=== PATIENT | male | born 1980 | race Caucasian/White ===

== ENCOUNTER 2016-11-24 18:37 | Emergency (ER) | payer MEDICAID, OTHER ==
[2016-11-24 18:44] VITALS: BP 122/78
--- NOTE | 2016-11-24 20:43 | ED ---
prachi Ivye Timothy, scribed for Krish Emerson MD on 11/24/16 at 1855 . Psychiatric Complaint - HPI Summary HPI Summary: Michael Mena is a 36 yo male presenting to [facility] with homicidal intent. He states he had a plan to kill his step father with an ax. Pt's girlfriend is present in room. Pt is on 50 mg zoloft. He states he has been drinking today. His MHx includes alcoholism, DT's, withdrawl seizures, tobacco use. - History Of Current Complaint Chief Complaint: EDMentalHealth Time Seen by Provider: 11/24/16 18:46 Accompanied By: significant other Hx Obtained From: Patient Onset/Duration: Gradual Onset, Lasting Hours, Still Present Timing: Constant Severity Initially: Moderate Severity Currently: Moderate Character: Manic Associated Signs And Symptoms: Positive: Hostile Related History: Positive For: Prior Psychiatric Issues Has Homicidal: Reports: Thoughts, With A Plan - Allergies/Home Medications Allergies/Adverse Reactions: Allergies Allergy/AdvReac Type Severity Reaction Status Date / Time No Known Allergies Allergy Verified 01/11/13 15:48 PMH/Surg Hx/FS Hx/Imm Hx Neurological History: Reports: Other Neuro Impairments/Disorders - withdrawal seizures, DTS Psychiatric History: Reports: Hx Substance Abuse - alcoholism - Immunization History Date of Tetanus Vaccine: UNKNOWN Date of Influenza Vaccine: NONE Infectious Disease History: No Infectious Disease History: Denies: Traveled Outside the US in Last 30 Days - Social History Alcohol Use: Daily Alcohol Amount: 12-48 beers a day/ pt usually drinks hard liquor. Substance Use Type: Reports: None Substance Use Comment - Amount & Last Used: occasional Hx Tobacco Use: Yes Smoking Status (MU): Heavy Every Day Tobacco Smoker Review of Systems Constitutional: Negative Eyes: Negative ENT: Negative Cardiovascular: Negative Respiratory: Negative Gastrointestinal: Negative Genitourinary: Negative Musculoskeletal: Negative Skin: Negative Neurological: Negative Psychological: Other - HI All Other Systems Reviewed And Are Negative: Yes Physical Exam Triage Information Reviewed: Yes Vital Signs On Initial Exam: Initial Vitals Temp Pulse Resp BP Pulse Ox 98.4 F 94 20 122/78 99 11/24/16 18:39 11/24/16 18:39 11/24/16 18:39 11/24/16 18:39 11/24/16 18:39 Vital Signs Reviewed: Yes Appearance: Positive: Well-Appearing, No Pain Distress Skin: Positive: Warm, Skin Color Reflects Adequate Perfusion, Dry Head/Face: Positive: Normal Head/Face Inspection Eyes: Positive: Normal ENT: Positive: Normal ENT inspection Neck: Positive: Supple, Nontender Respiratory/Lung Sounds: Positive: Clear to Auscultation, Breath Sounds Present Cardiovascular: Positive: RRR Abdomen Description: Positive: Nontender, Soft Bowel Sounds: Positive: Present Musculoskeletal: Positive: Normal Neurological: Positive: Normal Psychiatric: Negative: Normal - expressed HI Diagnostics - Vital Signs Vital Signs Temp Pulse Resp BP Pulse Ox 11/24/16 18:39 98.4 F 94 20 122/78 99 - Laboratory Lab Statement: Any lab studies that have been ordered have been reviewed, and results considered in the medical decision making process. Course/Dx - Course Assessment/Plan: Michael Mena is a 36 yo male presenting to [facility] with HI and a plan. Pt left [facility] at approximately 1900, police were promptly notified of situation adn will return Pt to the ED. 945 paperwork was filled out. - Differential Dx/Clinical Impression Provider Diagnosis: LWBS Discharge - Discharge Plan Condition: Fair Disposition: LEFT WITHOUT BEING SEEN Discharge Disposition Comment: Pt eloped at approximately 1900 Referrals: No Primary Care Phys,NOPCP [Primary Care Provider] - The documentation as recorded by the prachi kingsley Timothy accurately reflects the service I personally performed and the decisions made by me, Krish Emerson MD.
[2016-11-24 22:04] LABS: Hematocrit 53 % (42-52); Hemoglobin 17.1 g/dl (14.0-18.0); Mean Corpuscular HGB Conc 33 g/dl (31-36); Mean Corpuscular Hemoglobin 29 pg (27-31); Mean Corpuscular Volume 90 fL (80-94); Mean Platelet Volume 9 um3 (7.4-10.4); Red Blood Count 5.84 10^6/ul (4.0-5.4); Red Cell Distribution Width 14 % (10.5-15); White Blood Count 14.5 10^3/ul (3.5-10.8)
[2016-11-24 22:06] LABS: Urine Bilirubin Negative (Negative); Urine Glucose Negative (Negative); Urine Nitrite Negative (Negative)
[2016-11-24 22:19] LABS: ALT 33 U/L (7-52); AST 20 U/L (13-39); Albumin 4.8 g/dL (3.2-5.2); Alkaline Phosphatase 76 U/L (34-104); Anion Gap 10 mmol/L (2-11); BUN/Creatinine Ratio 7.6 (8-20); Blood Urea Nitrogen 6 mg/dL (6-24); CO2 Carbon Dioxide 19 mmol/L (22-32); Calcium 9.6 mg/dL (8.6-10.3); Chloride 106 mmol/L (101-111); EGFR African American 141.2 (>60); EGFR Non-African American 109.8 (>60); Globulin 4.2 g/dL (2-4); Glucose 97 mg/dL (70-100); Potassium 4.2 mmol/L (3.5-5.0); Sodium 135 mmol/L (133-145)
[2016-11-24 22:36] LABS: Acetaminophen < 15 mcg/mL; Alcohol 248 mg/dL (<10); Salicylate < 2.50 mg/dL (<30)
[2016-11-24 22:47] LABS: TSH (Thyroid Stimulating Horm) 1.09 mcIU/mL (0.34-5.60)
== END 2016-11-24 20:43 | disposition left against medical advice (07) ==
LOC: ED 18:37
DX: Z00.8 Encounter for other general examination (principal); Z53.21 Procedure and treatment not carried out due to patient leaving prior to being seen by health care provider
CPT/HCPCS: 36415; 80053; 80320; 80329; 81003; 84443; 85025; G0480

== ENCOUNTER 2016-11-24 21:17 | Inpatient (IN) | payer MEDICAID, OTHER ==
[2016-11-24] MEDS ORDERED: LORazepam INJ* 2 MG/ML 1 ML VIAL IM ONE (21:30)
[2016-11-24] MEDS ORDERED: LORazepam INJ* 2 MG/ML 1 ML VIAL ONE (21:31)
[2016-11-24] MEDS ORDERED: Nicotine Inhaler* 10 MG AMP ONE (21:52)
[2016-11-24] MEDS ORDERED: Mouth Piece, Nicotine* 1 EACH CARTRIDGE ONE (21:53)
--- NOTE | 2016-11-24 22:10 | ED ---
Es Ivey Erika, scribed for Jag Pate MD on 11/24/16 at 2146 . Psychiatric Complaint - HPI Summary HPI Summary: Patient is a 36-year-old male BIB police with a CC of prior HI. Patient was first seen in the ED at 18:46 today, where he reported HI with a plan of killing his stepfather with an axe. Patient eloped from the ED and police were immediately notified. Patient has now been returned to the ED by law enforcement after they found him at his home address. Currently, patient denies any SI and HI. - History Of Current Complaint Chief Complaint: EDMentalHealth Time Seen by Provider: 11/24/16 21:29 Hx Obtained From: Patient, Medical Records Onset/Duration: Gradual Onset, Lasting Hours, Still Present Timing: Constant Severity Currently: Severe Aggravating Factor(s): Alcohol Use Alleviating Factor(s): Nothing Associated Signs And Symptoms: Positive: Hostile Related History: Positive For: Prior Psychiatric Issues - Allergies/Home Medications Allergies/Adverse Reactions: Allergies Allergy/AdvReac Type Severity Reaction Status Date / Time No Known Allergies Allergy Verified 11/24/16 21:24 PMH/Surg Hx/FS Hx/Imm Hx Neurological History: Reports: Other Neuro Impairments/Disorders - withdrawal seizures, DTS Psychiatric History: Reports: Hx Substance Abuse - alcohol abuse - Immunization History Date of Tetanus Vaccine: UNKNOWN Date of Influenza Vaccine: NONE Infectious Disease History: No Infectious Disease History: Denies: Traveled Outside the US in Last 30 Days - Family History Known Family History: Positive: Hypertension - Social History Lives: With Family Alcohol Use: Daily Alcohol Amount: 12-48 beers a day/ pt usually drinks hard liquor. Substance Use Type: Reports: None Substance Use Comment - Amount & Last Used: occasional Hx Tobacco Use: Yes Smoking Status (MU): Heavy Every Day Tobacco Smoker Review of Systems Negative: Fever ENT: Other - gum pain Psychological: Other - Noted HI earlier today, currently denies All Other Systems Reviewed And Are Negative: Yes Physical Exam Triage Information Reviewed: Yes Vital Signs On Initial Exam: Initial Vitals Temp Pulse Resp BP Pulse Ox 98.3 F 110 16 132/93 96 11/24/16 21:21 11/24/16 21:21 11/24/16 21:21 11/24/16 21:21 11/24/16 21:21 Vital Signs Reviewed: Yes Appearance: Positive: Well-Appearing, No Pain Distress Skin: Positive: Warm Head/Face: Positive: Normal Head/Face Inspection Eyes: Positive: CARLYN ENT: Positive: Hearing grossly normal Neck: Positive: Supple Respiratory/Lung Sounds: Positive: Breath Sounds Present Cardiovascular: Positive: Normal Abdomen Description: Positive: Nontender, Soft Musculoskeletal: Positive: Strength/ROM Intact Neurological: Positive: Alert, Oriented to Person Place, Time - [place] Coma Scale Coma Scale Total: 14 Diagnostics - Vital Signs Vital Signs Temp Pulse Resp BP Pulse Ox 11/24/16 21:21 98.3 F 110 16 132/93 96 - Laboratory Lab Statement: Any lab studies that have been ordered have been reviewed, and results considered in the medical decision making process. Course/Dx - Course Assessment/Plan: A 36 y/o M is BIB police to the ED s/p stating HI with a plan. Pt cleared for MHU Evaluation at 22:00. After MHU Evaluation, pt is involuntarily admitted. - Differential Dx/Clinical Impression Provider Diagnosis: Alcohol intoxication Discharge - Discharge Plan Condition: Stable Disposition: ADMITTED TO [facility] Referrals: No Primary Care Phys,NOPCP [Primary Care Provider] - The documentation as recorded by the Es kingsley Erika accurately reflects the service I personally performed and the decisions made by , Jag Pate MD.
[2016-11-24 22:20] LABS: Benzodiazepine Urine Screen None Detected (None Detect)
[2016-11-25] MEDS ORDERED: Nicotine Inhaler* 10 MG AMP INH PRN (04:55)
[2016-11-25] MEDS ORDERED: Nicotine GUM* 2 MG PO PRN (04:55)
[2016-11-25] MEDS ORDERED: diPHENhydraMINE PO* 50 MG PO PRN (04:58)
[2016-11-25] MEDS ORDERED: Acetaminophen TAB* 325 MG PO PRN (04:58)
[2016-11-25] MEDS ORDERED: LORazepam TAB(*) 1 MG PO SCH (05:00)
[2016-11-25] MEDS: Nicotine PATCH 21 MG/24 HR* PATCH TRANSDERM SCH (08:25)
[2016-11-25] MEDS: Thiamine TAB* 100 MG TAB PO SCH (08:25)
[2016-11-25] MEDS: Multivitamins/Minerals TAB PO SCH (08:25)
[2016-11-25] MEDS: Folic Acid TAB* 1 MG PO SCH (08:26)
[2016-11-25 08:46] LABS: Hematocrit 52 % (42-52); Mean Corpuscular HGB Conc 33 g/dl (31-36); Mean Corpuscular Hemoglobin 30 pg (27-31); Mean Corpuscular Volume 90 fL (80-94); Mean Platelet Volume 8 um3 (7.4-10.4); Red Blood Count 5.74 10^6/ul (4.0-5.4); Red Cell Distribution Width 14 % (10.5-15); White Blood Count 14.9 10^3/ul (3.5-10.8)
[2016-11-25 08:58] LABS: ALT 27 U/L (7-52); AST 23 U/L (13-39); Albumin 4.7 g/dL (3.2-5.2); Alkaline Phosphatase 80 U/L (34-104); Anion Gap 10 mmol/L (2-11); Blood Urea Nitrogen 9 mg/dL (6-24); CO2 Carbon Dioxide 17 mmol/L (22-32); Calcium 9.8 mg/dL (8.6-10.3); Chloride 106 mmol/L (101-111); EGFR African American 135.2 (>60); EGFR Non-African American 105.1 (>60); Globulin 3.9 g/dL (2-4); Glucose 95 mg/dL (70-100); Potassium 4.5 mmol/L (3.5-5.0); Sodium 133 mmol/L (133-145); Total Protein 8.6 g/dL (6.4-8.9)
[2016-11-25] MEDS ORDERED: Sertraline* 50 MG TAB PO SCH (09:00)
[2016-11-25 09:30] LABS: Acetaminophen < 15 mcg/mL; Alcohol 20 mg/dL (<10); Salicylate < 2.50 mg/dL (<30)
--- NOTE | 2016-11-25 12:18 | HP ---
DATE OF ADMISSION: 11/24/2016. DATE OF EVALUATION: 11/25/2016. IDENTIFICATION: Mr. Mena is a father of two with whom he has had no contact for the past seven years. He is in a committed relationship with a woman for the past four years. He did come into the hospital with her. He did elope from the emergency department because he understood he would not be able to smoke were he to be admitted. Police brought him back in and he was admitted due to report of homicidal ideation. He was intoxicated at the time, however. HISTORY OF PRESENT ILLNESS: Information was gathered from the electronic medical record and from interview of the patient. Mr. Mena reports that he is here because he drank 40 beers in 24 hours. He also agrees when I review this with him that he mentioned to his girlfriend that he wanted to beat up his stepfather because he was just drunk and angry. He does agree that there was mention made of an axe at some point and it was, in fact, this dramatic report that raised concern as expressed homicidal ideation, albeit while intoxicated with a blood alcohol level obtained at 8:00 p.m. on 11/24/2016 of 248. Now that he is sober, he states that he has no intent or plan to harm himself or others. He does not feel that he needs to be on the psychiatric unit due to any safety concerns. On review of psychiatric symptoms, he reports that his mood is "alright." He reports with regard to whether he feels he is depressed "I don't think so, I think I use a depressant too much," referring to his use of alcohol. He says that he does have some experience of anhedonia and fills his time with watching TV and sleeping a lot more than usual. He denies any feelings of worthlessness or guilt. He estimates that his sleep is up to about 13 to 15 hours per day. His energy level when he is awake he says is pretty good. He reports that he has had some unintentional weight loss attributed to displacement of calories by the alcohol. He says his concentration and decision making is fine. He is more hopeful than hopeless. He denies ever any suicidal ideation. He does not have access to a gun. He reports his principal stressor as legal difficulties due to his children that he has no contact with for the past seven years and financial difficulties due to child support obligations. With regard to manic symptoms, he denies ever any. He reports that his anxiety level on a typical day is 3 to 4/10 and is manageable. He denies ever having had a panic attack. He denies ever any history of trauma or PTSD symptoms. He denies ever any OCD symptoms. He denies ever any psychotic symptoms aside from sometimes feeling paranoid when he experimented with marijuana as a teenager. MENTAL STATUS EXAMINATION: This is a tall man with halitosis likely due to gum disease. He otherwise has fair grooming and hygiene, although looks to be a bit disheveled with quite long and slightly unruly hair. He makes good eye contact. He is well-related in the interview. He has speech of normal rate, rhythm and volume. He has a linear and goal directed thought process. He is alert and oriented to person, place, time and situation. He reports his mood as "alright" with congruent affect. He does have good kinesic signs of engagement, with wide and appropriate ranging vocal tonality, and no indications of emotional distress. He denies now or ever before any auditory or visual hallucinations or any suicidal ideation. He reports that the homicidal ideation expressed when intoxicated was not in earnest, that it was only his expression of frustration while intoxicated and he has no intent to harm his stepfather or anyone else. He states that he has never had any intent to harm himself in any way. He denies any paranoia. His insight and judgment appears to be fair. His impulse control is intact. PAST PSYCHIATRIC HISTORY: This is his first inpatient psychiatric admission. He has had 16 rehab admissions for alcohol dependence. He did engage in outpatient care at [facility] six months ago for three months , where he saw therapist Sulaiman and he did meet with Dr. Fine he says. He is working with a diagnosis of depressive disorder made at [facility] by a psychiatrist who started Zoloft 50 mg and he continues to take the Zoloft 50 mg as his only medication. He denies ever any history of self-harm. He denies ever any thoughts about suicide. PAST MEDICAL HISTORY: Denies any. Denies any history of TBI's, seizures, syncopal episodes, or cardiac problems. PAST SURGICAL HISTORY: Denies any. MEDICATIONS AT ADMISSION: Zoloft 50 mg p.o. daily. ALLERGIES: Denies any. FAMILY PSYCHIATRIC HISTORY: He knows of none. Suicides in the family, he reported none. SUBSTANCE ABUSE HISTORY: The patient's primary difficulty is with alcohol. He started drinking at the age of 13. He has been through 16 rehabs for alcohol. He stopped drinking liquor years ago, but still drinks copious amounts of alcohol, estimating 40 beers in the past 24 hours prior to this admission. He did attain sobriety between 2001 and 2004 following rehab. He attributes this prolonged success to residence in the [facility] in [place] and is considering a move back there. He reports only brief experimentation with marijuana in the 9th grade, smoking it three times, each time suffering from paranoia and did not use it after that. He reports that he has never abused cocaine, heroin, pain pills, or benzodiazepines. He denies ever any abuse of other prescription medications. He reports having experimented with LSD and mushrooms in high school, with no ill effects. He drinks large amounts of caffeine, estimating about four energy drinks and two pots of coffee a day. He has never huffed glue, nor has he used cough medicine or any other over-the- counter medicine to get high. He is a heavy smoker, two packs per day. He is precontemplative with regard to stopping smoking, although he is accepting of patch and inhaler while here for replacement. SOCIAL HISTORY: He grew up in [place], [place]. He has two sisters and one brother who have moved to [place] and [place]. He reports he did okay in school. He attended some college at [employer]. He has been for four years with his current girlfriend. He was . He has two children, ages 12 and 8. His ex- is a [facility] certified substance abuse counselor and he attributes to that the difficulties they have had in the break-up due to his alcohol use disorder. He denies ever any history of violence. He identifies as exclusively heterosexual. LEGAL HISTORY: The patient has had a DUI, perhaps more than one, is currently on probation for one. REVIEW OF SYSTEMS: Negative except for pain in the gums, he is severely halitotic from that. Denies any chest pain, shortness of breath, nausea, vomiting, constipation, diarrhea, other source of pain than the gums, dizziness , blurred vision, or ringing in the ears. PHYSICAL EXAMINATION Declines a repeat physical examination. He was examined in the emergency department. It was documented as within normal limits, aside from statements while inebriated that he would kill his stepfather. VITAL SIGNS: Last recorded into the EMR at 0536 on 11/25/2016: Pulse 96, respiratory rate 17, saturating 96 percent on room air with a blood pressure of 130/77. Last temperature was recorded at close to 10:00 p.m. on 11/24/2016 and that was 97.7 Fahrenheit. LABORATORY VALUES: White blood cell count elevated to 14.9, red blood cell count elevated to 5.74, but with a normal hematocrit of 52, high end of normal, low lymphocyte percentage to 16.3, high absolute neutrophil to 11.4, otherwise CBCD within normal limits. Comprehensive metabolic panel entirely within normal limits. Normal TSH of 0.9. Carbon dioxide low at 17, transaminase is normal at 23 AST, 27 ALT. Toxicology: Blood alcohol level 248 on check done at 8:00 p.m. on 11/24/2016, corrected to 20 on recheck 12 hours later. Toxicology screen negative for all other substances in serum and blood. No salicylates, no acetaminophen. ASSESSMENT AND PLAN: Mr Mena is a 36-year-old man whose primary issue appears to be alcohol use disorder, severe. He denies having any particular difficulties with depression at this time, although he does state that he did have some benefit initially from the Zoloft that he takes, but attributes most of his depressive symptoms to alcohol. He is reluctant to consider yet another rehab, having been through 16 of them. I will be gathering further collateral and considering [place] obligation to the stepfather with the threats made while inebriated. I have explained this to him that he or I may need to alert the stepfather to the threats that were made. He has been admitted on a 939. He is on 15 minute checks. He will be afforded the opportunity to engage in the therapeutic milieu and groups. I will be reviewing with the treatment team his behavior on the unit and any other information gathered from family with regard particularly to safety concerns that were raised by the homicidal ideation voiced in the emergency department. Aftercare may be return to the [facility], possibly alcohol rehab services of some sort; it seems like this latter would be the most important for him as this seems the clearest and worst source of harm to him. DIAGNOSES: Alcohol-induced depressive disorder; alcohol use disorder, severe. [id number]/CPS #: [id number] SUMMER
[2016-11-25] MEDS ORDERED: Mouth Piece, Nicotine* 1 EACH CARTRIDGE ONE (12:56)
[2016-11-25] MEDS ORDERED: Disulfiram TAB* 250 MG PO ONE (13:43)
--- NOTE | 2016-11-25 14:37 | DS ---
Subjective - Subjective Service Types: [address] Day Mgmt simple under 30 min Discharge Date: 11/26/16 Subjective: Michael reports feeling safe and ready for discharge. He continues to deny, as he has since achieving sobriety, any dangerous intent or plan. His mother, his stepfather (against whom a concerning threat was made while intoxicated) and his girlfriend all have stated they have no concerns for his or others' safety if he is discharged today. Objective - Appearance Appearance: Healthy Appearing Dysmorphic Features: No Hygiene: Normal Grooming: Well Kept - Behavior Psychomotor Activities: Normal Exhibits Abnormal Movement: No - Attitude and Relatedness Attitude and Relatedness: Well Related Eye Contact: Good - Speech Quality: Unpressured Latencies: Normal Quantity: Appropriate - Mood Patient's Decription of Mood: "Good" - Affect Observed Affect: Good Affect Consistent with: Euthymia - Thought Process Patient's Thought Process: Coherent, Goal Directed Thought Content: No Passive Wish, No Suicidal Planning, No Homicidal Ideation, No Paranoid Ideation - Sensorium Experiencing Hallucinations: No, Sensorium is Clear Type of Hallucinations: Visual: No, Auditory: No, Command: No - Level of Consciousness Level of Consciousness: Alert Orientation: Yes Intact, Yes Orientated to Time, Yes Orientated to Place, Yes Orientated to Person - Impulse Control Impulse Control: Intact - Insight and Judgement Insight and Judgement: Fair - Group Participation Particating in Group Activities: Yes - Medication Management Medication Management Adherence: Yes Treatment Course & Assessment Clinical Course & Impression: Mr Mena is a 36-year-old man whose primary issue appears to be alcohol use disorder, severe. He denies having any particular difficulties with depression at this time, although he does state that he did have some benefit initially from the Zoloft that he takes, but attributes most of his depressive symptoms to alcohol. He is reluctant to consider yet another rehab, having been through 16 of them. I will be gathering further collateral and considering [place] obligation to the stepfather with the threats made while inebriated. I have explained this to him that he or I may need to alert the stepfather to the threats that were made. He has been admitted on a 939. He is on 15 minute checks. He will be afforded the opportunity to engage in the therapeutic milieu and groups. I will be reviewing with the treatment team his behavior on the unit and any other information gathered from family with regard particularly to safety concerns that were raised by the homicidal ideation voiced in the emergency department. Aftercare may be return to the [facility], possibly alcohol rehab services of some sort; it seems like this latter would be the most important for him as this seems the clearest and worst source of harm to him. 3.17: All collateral sources (mother, stepfather, girlfriend) report Mr Mena has never been violent toward others. He himself has reported that he has never been violent toward others, and has never had thoughts about harming himself in any way. He would like to restart Antabuse against relapse to alcohol. He would like to continue Zoloft at an increased dose. He has taken Antabuse before and is familiar with its use against relapse to alcohol. He tolerated well an increase of Zoloft to 100 mg daily. He reports he would like to continue taking the 50 mg tabs that were prescribe to him 2 daily, and will call his PCP to get a dose increase prescribed. He says his PCP had discussed going up on dose before this hospitalization. Michael is cleared for discharge. He is assessed as at no acutely increased risk of harm to self or others, and capable of adequate self-care to avoid harm. He agrees to follow-up care at [facility], and AA. He reports low symptom burden from mood disorder, and does appear to be primarily impaired by effects of alcohol on mood, which is his self-assessment. He is bright and future- oriented. His self-report and all collateral reports indicate that he is at low risk of harming himself or others. He voices commitment to maintaining sobriety from alcohol. He declined referral to inpatient rehab, which had been my recommendation. He declined aid in stopping smoking, including nicotine replacement, which had been my recommendation. Michael completed detox from alcohol, with no scoring on WAM protocol and no Ativan past 3..17 at 0945 AM. Merits Inpatient Hospitalization: No Clear for Discharge: Adequate Clinical Respons, Acceptable Safety Profile, Low Utility of Inpt Care Inpatient DSM-IV Dx: Alcohol-induced depressive disorder. Alcohol use disorder , severe - [place] III Medical Illness: gum disease - [place] IV Stressors: child custody issues Family: Supportive mother and girlfriend Primary Support Group: girlfriend, mother - [place] V EDZ-Cxgets-Mpcue: 65 Estimate of Highest-Past Year: 70 Discharge Planning - Discharge Planning Discharge Plan: Outpatient Follow Up Outpatient Program: [facility] Recommendations for Continuing Care: Medication Management, Psychotherapy, Substance Abuse Counseling - via AA, Specialty Followup - dentist today at 3 pm Medications: Refused nicotine replacement Sertraline HCl (Zoloft*) 100 mg PO DAILY DEON Antabuse 500 mg po daily Discharge Planning: Prescriptions provided for discharge [x] Yes: only Antabuse 500 mg as 2x250 mg daily, #60, 0 refills. He preferred to contact his PCP for script for increased dose of Zoloft, with plan to take 2x50 mg doses using 50 mg tabs in the meantime. [] No Follow up care details as per social work arrangements. Patient response to discharge plan: [x] eager for discharge [x] agreeable with discharge plan [] ambivalent about discharge [] disagrees with discharge today
[2016-11-25] MEDS ORDERED: Nicotine Patch Removal NOTE PATCH OFF SCH (21:00)
[2016-11-26 08:01] VITALS: BP 123/84
[2016-11-26] MEDS ORDERED: Sertraline* 100 MG TAB PO SCH (09:00)
[2016-11-26] MEDS: Folic Acid TAB* 1 MG PO SCH (09:17)
[2016-11-26] MEDS: Thiamine TAB* 100 MG TAB PO SCH (09:17)
[2016-11-26] MEDS: Nicotine PATCH 21 MG/24 HR* PATCH TRANSDERM SCH (09:17)
[2016-11-26] MEDS: Multivitamins/Minerals TAB PO SCH (09:17)
== END 2016-11-26 11:00 | disposition home or self-care (01) | DRG 775 ==
LOC: ED 21:17 → BSU 11-25 07:31
PROVIDERS: ADMIT Psychiatry & Neurology Psychiatry; ATTEND Psychiatry & Neurology Psychiatry
PROC: HZ2ZZZZ Detoxification Services for Substance Abuse Treatment (ICD-10-PCS; principal; 2016-11-25)
DX: F10.94 Alcohol use, unspecified with alcohol-induced mood disorder (principal); F32.9 Major depressive disorder, single episode, unspecified; Y90.8 Blood alcohol level of 240 mg/100 ml or more; F17.210 Nicotine dependence, cigarettes, uncomplicated; Z82.49 Family history of ischemic heart disease and other diseases of the circulatory system; K06.9 Disorder of gingiva and edentulous alveolar ridge, unspecified
CPT/HCPCS: 36415; 80053; 80307; 80320; 80329; 84443; 85025; 96374; 99222; 99238; 99285; A9270-GY; G0480; J2060

== ENCOUNTER 2017-12-07 18:35 | Emergency (ER) | payer OTHER ==
[2017-12-07 19:09] LABS: ABS Basophils 0 10^3/ul (0-0.2); ABS Eosinophils 0.1 10^3/ul (0-0.6); ABS Lymphocytes 3.7 10^3/ul (1.0-4.8); ABS Monocytes 0.8 10^3/ul (0-0.8); ABS Neutrophils 5.7 10^3/ul (1.5-7.7); ABS Nucleated RBC 0 10^3/ul; Eosinophil % 0.9 % (0-6); Hematocrit 46 % (42-52); Lymphocyte % 35.9 % (25-47); Mean Corpuscular HGB Conc 35 g/dl (31-36); Mean Corpuscular Hemoglobin 31 pg (27-31); Mean Corpuscular Volume 90 fL (80-94); Mean Platelet Volume 8 um3 (7.4-10.4); Nucleated Red Blood Cells % 0.1; Platelet Count 331 10^3/ul (150-450); Red Blood Count 5.16 10^6/ul (4.0-5.4); Red Cell Distribution Width 14 % (10.5-15); White Blood Count 10.3 10^3/ul (3.5-10.8)
[2017-12-07 19:26] LABS: EGFR Non-African American 110.8 (>60)
[2017-12-07] MEDS ORDERED: Mouth Piece, Nicotine* 1 EACH CARTRIDGE INH ONE (20:25)
[2017-12-07] MEDS: Nicotine Inhaler* 10 MG AMP INH PRN ×2 (20:36→22:17)
[2017-12-07] MEDS ORDERED: Mouth Piece, Nicotine* 1 EACH CARTRIDGE ONE (22:13)
--- NOTE | 2017-12-08 01:59 | ED ---
Sofya Ivey Rebecca, scribed for Domingo Hooper MD on 12/07/17 at 1931 . Psychiatric Complaint - HPI Summary HPI Summary: Pt is a 37 y/o M who presents to ED c/o depression with SIs. Pt reports that he lives off the grid and can go months without talking to anyone and listens to the news. Pt states that he "lashed out because they tried to unisolate me." States that does not take any medications currently, though he has tried Zoloft before without improvement and instead drinks alcohol. Reports drinking 3 beers today. PMHx of depression with prior similar episodes, about 1 year ago he was admitted to [facility] due to psychiatric complaints. - History Of Current Complaint Chief Complaint: EDMentalHealth Time Seen by Provider: 12/07/17 19:26 Hx Obtained From: Patient Onset/Duration: Still Present Character: Depressed Alleviating Factor(s): Nothing Associated Signs And Symptoms: Positive: Negative Related History: Positive For: Prior Psychiatric Issues - Depression Has Suicidal: Reports: Thoughts - Allergies/Home Medications Allergies/Adverse Reactions: Allergies Allergy/AdvReac Type Severity Reaction Status Date / Time No Known Allergies Allergy Verified 11/24/16 21:24 PMH/Surg Hx/FS Hx/Imm Hx Neurological History: Reports: Other Neuro Impairments/Disorders - withdrawal seizures, DTS Psychiatric History: Reports: Hx Substance Abuse - alcohol abuse Denies: Hx Eating Disorder - Immunization History Date of Tetanus Vaccine: UNKNOWN Date of Influenza Vaccine: NONE Infectious Disease History: No Infectious Disease History: Denies: Traveled Outside the [place] in Last 30 Days - Family History Known Family History: Positive: Hypertension - Social History Alcohol Use: Daily Alcohol Amount: 12-48 beers a day/ pt usually drinks hard liquor. Substance Use Type: Reports: None Substance Use Comment - Amount & Last Used: occasional Hx Tobacco Use: Yes Smoking Status (MU): Heavy Every Day Tobacco Smoker Review of Systems Negative: Fever Positive: Depressed, Other - SIs All Other Systems Reviewed And Are Negative: Yes Physical Exam - Summary Physical Exam Summary: VITAL SIGNS: Reviewed. GENERAL: ~Patient is a well-developed and nourished male who is lying comfortable in the stretcher. Patient is not in any acute respiratory distress. Alcohol on breath. HEAD AND FACE: No signs of trauma. No ecchymosis, hematomas or skull depressions. No sinus tenderness. EYES: PERRLA, EOMI x 2, No injected conjunctiva, no nystagmus. EARS: Hearing grossly intact. Ear canals and tympanic membranes are within normal limits. MOUTH: Oropharynx within normal limits. NECK: Supple, trachea is midline, no adenopathy, no JVD, no carotid bruit, no c- spine tenderness, neck with full ROM. CHEST: Symmetric, no tenderness at palpation LUNGS: Clear to auscultation bilaterally. No wheezing or crackles. CVS: Regular rate and rhythm, S1 and S2 present, no murmurs or gallops appreciated. EXTREMITIES: FROM in all major joints, no edema, no cyanosis or clubbing. NEURO: Alert and oriented x 3. No acute neurological deficits. Speech is normal and follows commands. SKIN: Dry and warm Psych: Slightly withdrawn. Triage Information Reviewed: Yes Vital Signs On Initial Exam: Initial Vitals Temp Pulse Resp BP Pulse Ox 99.0 F 117 18 150/92 97 12/07/17 18:38 12/07/17 18:38 12/07/17 18:38 12/07/17 18:38 12/07/17 18:38 Vital Signs Reviewed: Yes Diagnostics - Vital Signs Vital Signs Temp Pulse Resp BP Pulse Ox 12/07/17 18:38 99.0 F 117 18 150/92 97 - Laboratory Lab Results: Lab Results 12/07/17 12/07/17 Range/Units 19:03 19:03 WBC 10.3 (3.5-10.8) 10^3/ul RBC 5.16 (4.0-5.4) 10^6/ul Hgb 16.0 (14.0-18.0) g/dl Hct 46 (42-52) % MCV 90 (80-94) fL MCH 31 (27-31) pg MCHC 35 (31-36) g/dl RDW 14 (10.5-15) % Plt Count 331 (150-450) 10^3/ul MPV 8 (7.4-10.4) um3 Neut % (Auto) 55.0 (38-83) % Lymph % (Auto) 35.9 (25-47) % Martin % (Auto) 7.7 H (0-7) % Eos % (Auto) 0.9 (0-6) % Baso % (Auto) 0.5 (0-2) % Absolute Neuts (auto) 5.7 (1.5-7.7) 10^3/ul Absolute Lymphs (auto) 3.7 (1.0-4.8) 10^3/ul Absolute Monos (auto) 0.8 (0-0.8) 10^3/ul Absolute Eos (auto) 0.1 (0-0.6) 10^3/ul Absolute Basos (auto) 0 (0-0.2) 10^3/ul Absolute Nucleated RBC 0 10^3/ul Nucleated RBC % 0.1 Sodium 134 (133-145) mmol/L Potassium 3.9 (3.5-5.0) mmol/L Chloride 103 (101-111) mmol/L Carbon Dioxide 19 L (22-32) mmol/L Anion Gap 12 H (2-11) mmol/L BUN 8 (6-24) mg/dL Creatinine 0.78 (0.67-1.17) mg/dL Est GFR ( Amer) 142.5 (>60) Est GFR (Non-Af Amer) 110.8 (>60) BUN/Creatinine Ratio 10.3 (8-20) Glucose 90 (70-100) mg/dL Calcium 9.7 (8.6-10.3) mg/dL Total Bilirubin 0.30 (0.2-1.0) mg/dL AST 56 H (13-39) U/L ALT 85 H (7-52) U/L Alkaline Phosphatase 71 (34-104) U/L Total Protein 8.1 (6.4-8.9) g/dL Albumin 4.6 (3.2-5.2) g/dL Globulin 3.5 (2-4) g/dL Albumin/Globulin Ratio 1.3 (1-3) TSH Pending Salicylates Pending Acetaminophen Pending Serum Alcohol Pending Result Diagrams: 12/07/17 19:03 12/07/17 19:03 Lab Statement: Any lab studies that have been ordered have been reviewed, and results considered in the medical decision making process. Re-Evaluation - Re-Evaluation First Eval Re-Evaluation Time: 01:51 Comment: Discussed D/C plan with the pt and his mother who understand and agrees. Course/Dx - Course Assessment/Plan: Pt is a 37 y/o M who presents to ED c/o depression with SIs. Pt reports that he lives off the grid and can go months without talking to anyone and listens to the news. Pt states that he "lashed out because they tried to unisolate me." States that does not take any medications currently, though he has tried Zoloft before without improvement and instead drinks alcohol. Reports drinking 3 beers today. PMHx of depression with prior similar episodes, about 1 year ago he was admitted to [facility] due to psychiatric complaints. Serum alcohol of 190. In the ED course, pt received a nicotine inhaler. Medically cleared for MHE at 2300. Upon completion of MHE, it has been determined that pt can be D/C to home. Pt will be D/C with Dx of alcoholism. Psychiatrist is Dr. Murry. Pt understands and agrees. - Differential Dx/Clinical Impression Provider Diagnosis: Alcoholism Discharge - Discharge Plan Condition: Stable Disposition: HOME Patient Education Materials: Alcohol Dependence (ED) Referrals: No Primary Care Phys,NOPCP [Primary Care Provider] - Additional Instructions: Per completion of a mental health evaluation, you are cleared for release and do not require inpatient psychiatric hospitalization at this time. Please go to nearest emergency room or call 911 if safety concerns arise or condition worsens. [facility]........[phone] Suicide Prevention and Crisis Services........................[phone] National Suicide Prevention Lifeline............................[phone] ( 5367) [facility].......................[phone] Alcoholics Anonymous...............................................[phone] [facility]..............[phone] [place] [employer]..............................................[phone] Alcohol [facility] Drug [facility] [phone]. [address], [address] [place], [place] [address] The documentation as recorded by the Sofya kingsley Rebecca accurately reflects the service I personally performed and the decisions made by , Domingo Hooper MD.
[2017-12-08 02:01] VITALS: BP 148/107
== END 2017-12-08 01:59 | disposition home or self-care (01) ==
LOC: ED 18:35
DX: F10.20 Alcohol dependence, uncomplicated (principal); F32.9 Major depressive disorder, single episode, unspecified; F17.210 Nicotine dependence, cigarettes, uncomplicated
CPT/HCPCS: 36415; 80053; 80307; 80320; 80329; 84443; 85025; 99285; A9270-GY; G0480

== ENCOUNTER 2018-04-23 20:26 | Emergency (ER) | payer OTHER ==
[2018-04-23 20:40] VITALS: BP 118/83
--- NOTE | 2018-04-23 20:44 | UC ---
Dental HPI - HPI Summary HPI Summary: 38 yo male presents with left lower jaw pain for the last few weeks. He tells me that he is in the process of having all of his teeth removed and thinks there is a left lower tooth with an abscess. He admits to drinking alcohol to numb the pain. Still eating and drinking, but with significant pain. Denies fever, chills. - History of Current Complaint Chief Complaint: UCDentalProblem Stated Complaint: TOOTH,JAW,NECK PAIN,FEVER Time Seen by Provider: 04/23/18 20:43 Hx Obtained From: Patient Onset/Duration: Gradual Onset Severity: Severe Pain Intensity: 9 Pain Scale Used: 0-10 Numeric - Allergies/Home Medications Allergies/Adverse Reactions: Allergies Allergy/AdvReac Type Severity Reaction Status Date / Time No Known Allergies Allergy Verified 04/23/18 20:40 Home Medications: Home Medications Acetaminophen [APAP] 650 mg PO 04/23/18 [History] PMH/Surg Hx/FS Hx/Imm Hx - Additional Past Medical History Additional PMH: Alcoholism - Surgical History Surgical History: None - Family History Known Family History: Positive: Hypertension - Social History Occupation: Unemployed Lives: With Family Alcohol Use: Occasionally Alcohol Amount: 12-48 beers a day/ pt usually drinks hard liquor. Substance Use Type: None Substance Use Comment - Amount & Last Used: occasional Smoking Status (MU): Heavy Every Day Tobacco Smoker Type: Cigarettes - Immunization History Most Recent Influenza Vaccination: unk Most Recent Tetanus Shot: unk Most Recent Pneumonia Vaccination: unk Review of Systems Constitutional: Negative Skin: Negative ENT: Dental Pain Respiratory: Negative Neurovascular: Negative Neurological: Negative Psychological: Negative All Other Systems Reviewed And Are Negative: Yes Physical Exam - Summary Physical Exam Summary: GENERAL: NAD. WDWN. No pain distress. SKIN: No rashes, sores, lesions, or open wounds. Nose: NTTP maxillary and frontal sinus. Throat: Posterior oropharynx without exudates, erythema, or tonsillar enlargement. Uvula midline. NECK: Supple. Nontender. No lymphadenopathy. CHEST: No accessory muscle use. Breathing comfortably and in no distress. CV: Pulses intact. Brisk cap refill. NEURO: Alert. CN II-XII grossly intact. PSYCH: Age appropriate behavior. Triage Information Reviewed: Yes Vital Signs: Initial Vital Signs Temp 98.6 F 07/28/18 20:29 Pulse 102 04/23/18 20:29 Resp 18 04/23/18 20:29 BP 118/83 04/23/18 20:29 Pulse Ox 96 04/23/18 20:29 Vital Signs Reviewed: Yes Dental: Positive: Percussion Tenderness @ - Tooth 19, Gross Decay/Caries @ - Throughout, Dental Fracture @ - Tooth 19, Abscess @ - Tooth 19, Cellulitis @ - Tooth 19. Negative: Cervical Lymphadenopathy, Bleeding Dental Complaint Course/Dx - Course Course Of Treatment: Tooth 19 abscess rx for augmentin and f/u with dentist. - Differential Dx/Diagnosis Provider Diagnoses: Tooth 19 abscess Discharge - Sign-Out/Discharge Documenting (check all that apply): Patient Departure - Discharge Plan Condition: Stable Disposition: HOME Prescriptions: Amoxicillin/Clavulanate TAB* [Augmentin TAB 875*] 875 mg PO BID #14 tab Patient Education Materials: Dental Abscess (ED) Referrals: Man Whitlock MD [Primary Care Provider] - Additional Instructions: If you develop a fever, shortness of breath, chest pain, new or worsening symptoms - please call your PCP or go to the ED. - Billing Disposition and Condition Condition: STABLE Disposition: Home
[2018-04-23] MEDS ORDERED: Amoxicillin/Clavulanate TAB* 875 MG PO ONE (20:53)
== END 2018-04-23 20:56 | disposition home or self-care (01) ==
LOC: UCEAST 20:26
DX: K04.7 Periapical abscess without sinus (principal); F17.210 Nicotine dependence, cigarettes, uncomplicated
CPT/HCPCS: 99212; A9270-GY; G0463